=== PATIENT | female | born 1950 | race Caucasian/White ===

== ENCOUNTER → 2017-02-25 | Day surgery (SDC) | payer MEDICARE, BC ==
[~2017-02-25] MED LIST: ACETAMINOPHEN 1000 MG/100 ML 100 ML IV ONE; ACETAMINOPHEN/HYDROcodone 325 MG/5 MG TAB ONE; BUPIVACAINE/EPINEPHRINE 0.25% 50 ML VIAL ONE; DEXAMETHASONE SOD PHOS 4 MG/ML VIAL IV ONE; KETOROLAC TROMETHAMINE 30 MG/ML (IVP) VIAL IV PUSH ONE; LACTATED RINGER'S 1000 ML INJ 1,000 ML ONE; LIDOCAINE HCL 1% PF 5 ML AMPULE OTHER ONE; ONDANSETRON HCL 4 MG/2 ML VIAL IV PUSH ONE; PROMETHAZINE INJ 25 MG/ML VIAL ONE; PROPOFOL 200 MG/20 ML AMP IV ONE; SODIUM CHLOR 0.9% 250 ML BAG IV ONE; VANCOMYCIN HCL 1000 MG VIAL ONE
--- NOTE | 2017-02-26 07:59 | MP ---
cc: MAXI KAY M.D., ALAN S. M.D. RINER, MARK A. M.D. SPRINGER, DEANNA K. M.D. DATE OF SURGERY 02/25/2017 PROCEDURE 1. Laparoscopic right inguinal hernia repair with mesh. 2. Primary umbilical hernia repair. PREOPERATIVE DIAGNOSIS Symptomatic right inguinal hernia with component of colon. POSTOPERATIVE DIAGNOSIS 1. Symptomatic right inguinal hernia with component of colon, without any entrapped bowel. 2. Umbilical hernia, reducible. ANESTHESIA LMA SURGEON Maxi Kay MD ESTIMATED BLOOD LOSS Less than 10 mL FLUIDS 800 mL crystalloid COMPLICATIONS None DRAINS None SPECIMEN None PROCEDURE IN DETAIL The patient was seen in the holding area in the right groin marked and confirmed with the patient. She was taken to the operating room and placed on the operating table in the supine position. After appropriate level of anesthesia was achieved, the abdomen and groin were prepped and draped in the field. Time-out was taken confirming the correct patient, site, and procedure to be performed. The skin and subcutaneous tissue was infiltrated with local anesthetic and an incision made in the umbilicus and carried through the fascia sharply. The patient was noted to have an umbilical hernia, and preperitoneal fat was reduced into the abdominal cavity. A 10/12 mm balloon trocar was inserted and the balloon inflated. The abdomen was insufflated. The patient was placed in Trendelenburg position. A 10 mm 30 degrees laparoscope was inserted. The patient was noted to have a right inguinal hernia. A 12-mm trocar was placed in the right lower quadrant and entered the abdominal cavity under direct vision uneventfully. A 5-mm trocar was placed in the left lower quadrant and entered the abdominal cavity under direct vision uneventfully as well. The peritoneum was incised above the defect and peeled downward. The hernia sac was completely reduced. The patient was noted to have both a direct and indirect component to the hernia. Grant's ligament was exposed with loose fatty areolar tissue removed from Grant's ligament. Fatty tissue was removed and the anterior abdominal wall so that the mesh could be placed directly on muscle and fascia. As the patient's hernia extended across the epigastric vessels, the patient was best felt to have a more secure repair with division of the epigastric vessels. These were divided with the harmonic scalpel. When this had been completed, the remaining loose fatty tissue was taken down off of the round ligament. This was left in place. A 6 x 6 inch piece of Ultrapro mesh was trimmed to approximately 4 x 6 inches, slit longitudinally and placed into the pelvis. The inferior leaf of mesh was brought under the round ligament where a window had been created. The mesh was fixed in place to Grant's ligament with 4.0 mm ralf and then to the anterior abdominal wall with 4.8 mm ralf. The mesh was then fixed laterally and medially with 4.8 mm ralf to close down the new internal ring around the round ligament. When this had been completed, the anterior overlap from the edge of the hernia defect to the edge of the mesh was less than 5 cm and an additional piece of the Ultrapro mesh was placed into the pelvis. The additional mass mesh was tacked down to the anterior abdominal wall and to the previously placed mesh with 4.8 mm ralf. This provided for a much wider piece of mesh over the defect. This provided for much more secure repair as well. The surgeon's finger placed into the defect demonstrated at least 5 cm overlap between the edge of the defect and the edge of the mesh. When this had been completed and with hemostasis assured, insufflation was decreased and the peritoneum was reapproximated with 4.8 mm ralf. The trocars were removed under direct vision with no bleeding noted from the trocar sites during desufflation. The laparoscope and umbilical port were then removed. The fascia was closed in the umbilicus with a 0-Prolene suture in an interrupted fashion. The fascia was closed in the right lower quadrant 12-mm trocar site with a 0 Vicryl suture in a [id number] fashion. Local anesthetic was injected into the right groin, as well as into the trocar sites. The skin was closed at each of the trocar sites with 4-0 Vicryl in an interrupted buried fashion. Each of the trocar sites was dressed with Steri-Strips. The patient was extubated and taken back to the recovery room in stable condition. She tolerated the procedure well. MD GATO Haque/JEREMIAH /6:35 PM /7:30 AM
== END | disposition home or self-care (01) ==
LOC: ESDC 06:48
PROVIDERS: ATTEND Surgery Trauma Surgery
DX: K40.90 Unilateral inguinal hernia, without obstruction or gangrene, not specified as recurrent (principal); K42.9 Umbilical hernia without obstruction or gangrene
CPT/HCPCS: 00750; 00840; 49585; 49650; C1781; J0131; J1100; J1885; J2405; J2550; J3010; J3370; J7050; J7120